=== PATIENT | female | born 1960 | race Caucasian/White ===

== ENCOUNTER 2016-10-15 21:00 | Emergency (ER) | payer BC ==
[2016-10-15] MEDS ORDERED: Sodium Chloride 0.9% 2.5 ML Syringe FLUSH PRN (21:25)
[2016-10-15] MEDS ORDERED: Sodium Chloride 0.9% 10 ML Syringe FLUSH PRN (21:25)
[2016-10-15] MEDS ORDERED: diphenhydrAMINE 50 MG/ML SDV IVPUSH ONE (21:26)
[2016-10-15] MEDS ORDERED: Meclizine 25 MG Tab PO ONE (21:26)
[2016-10-15] MEDS ORDERED: Ondansetron 4 MG/2 ML SDV IVPUSH ONE (21:26)
--- NOTE | 2016-10-15 21:31 | EDM.PDOC ---
ED HPI GENERAL MEDICAL PROBLEM - General Chief Complaint: General Stated Complaint: DIZZY, VOMITING Time Seen by Provider: 10/15/16 21:05 - History of Present Illness INITIAL COMMENTS - FREE TEXT/NARRATIVE: HISTORY AND PHYSICAL: History of present illness: The patient is a 56-year-old female with a history of diabetes hypertension hypercholesterolemia hypothyroidism who follows with a family physician in [facility] where she lives and who presents with acute onset of dizziness nausea and vomiting which has since improved. Patient states she completely normal day today it took all of her usual medications and was just doing normal activities when at 7:30 PM, approximately 2 hours ago, she had sudden onset of dizziness like the room was spinning and acute nausea and vomiting x2. She did not have a headache neck pain back pain chest pain or shortness of breath and did not feel like she's going to pass out. She states that when she sat down she felt better but when she moves her head it was worse. Patient drove here with her and she states that by the time she was in triage she was significantly improved and only had a little bit of lightheadedness and dizziness but did not like she's got a pass out. She doesn't have anymore nausea and she never had abdominal pain. Patient denies any speech changes or trouble swallowing and she did not feel confused during this episode. She had no focal extremity weakness tingling or numbness. She currently is relatively asymptomatic except if she moves her head quickly to the left on my evaluation. Review of systems: As per history of present illness and below otherwise all systems reviewed and negative. Past medical history: As per history of present illness and as reviewed below otherwise noncontributory. Surgical history: As per history of present illness and as reviewed below otherwise noncontributory. Social history: No reported history of drug or alcohol abuse. Family history: As per history of present illness and as reviewed below otherwise noncontributory. Physical exam: General: Well-developed well-nourished female who is nontoxic and speaks clearly and easily in the ED. She has no demonstrated nystagmus on my exam. When I have her move her head quickly back and forth she says that when she moves quickly to the left she feels more dizzy than when she looks to the right. HEENT: Atraumatic, normocephalic, pupils reactive, negative for conjunctival pallor or scleral icterus, mucous membranes moist, throat clear, neck supple, nontender, trachea midline. EOMs intact, there is no midline step-offs or defects the cervical spine and no paraspinal tenderness, TMs are dulled bilaterally without any mastoid tenderness or redness Lungs: Clear to auscultation, breath sounds equal bilaterally, chest nontender. Heart: S1S2, regular, negative for clicks, rubs, or JVD. Abdomen: Soft, nondistended, nontender. Negative for masses or hepatosplenomegaly. Negative for costovertebral tenderness. Pelvis: Stable nontender. Genitourinary: Deferred. Rectal: Deferred. Extremities: Atraumatic, negative for cords or calf pain. Neurovascular unremarkable. No pedal edema Neuro: Awake, alert, oriented. Cranial nerves II through XII unremarkable. Cerebellum unremarkable. Motor and sensory unremarkable throughout. Exam nonfocal. Patient ambulated into the ED without ataxia. She has intact tone motor throughout all extremities and has no visible deficits. Her finger-nose is intact as is her speech. There is no drift in any of the extremities Diagnostics: EKG CT scan of the head CBC CMP TSH troponin UA orthostatic vitals Therapeutics: Antivert Benadryl Zofran IV O2 monitor Patient states she feels much improved and would like to go home. I did discuss with her the option of staying for observation admission and she declines at this time. She says that she will fill the prescription for Antivert and utilize it as we discussed and follow up with her provider tomorrow. She is aware of reasons to return to the ED Impression: Acute episode of vertiginous symptoms improved Definitive disposition and diagnosis as appropriate pending reevaluation and review of above. head Pain Score (Numeric/FACES): 1 - Related Data Allergies Allergy/AdvReac Type Severity Reaction Status Date / Time No Known Allergies Allergy Verified 10/15/16 21:11 Home Meds: Home Meds Levothyroxine 125 mcg PO DAILY 04/05/15 [History] Lisinopril 5 mg PO DAILY 04/05/15 [History] metFORMIN [Glucophage] 1,000 mg PO WITHDINNER 04/05/15 [History] Aspirin 81 mg PO BRK 10/15/16 [History] Clopidogrel Bisulfate [Clopidogrel] 1 tab PO DAILY 10/15/16 [History] Metoprolol Succinate [Toprol XL] 1 tab PO DAILY 10/15/16 [History] Nitroglycerin [Nitrostat] 1 tab PO ASDIRECTED 10/15/16 [History] atorvaSTATin Calcium [Atorvastatin Calcium] 1 tab PO ONETIME 10/15/16 [History] Past Medical History Other Oncologic History: 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 ED EXAM, GENERAL - Physical Exam Exam: See Below (See dictation) Course - Vital Signs Last Recorded V/S: Last Vital Signs Temp 36.5 C 10/15/16 21:15 Pulse 70 10/15/16 21:15 Resp 16 10/15/16 21:15 BP 153/69 H 10/15/16 21:15 Pulse Ox 97 10/15/16 21:24 Orthostatic Blood Pressure [ 173/76 Standing] Orthostatic Blood Pressure [ 171/74 Sitting] Orthostatic Blood Pressure [ 175/74 Supine] - Orders/Labs/Meds Orders: Active Orders 24 hr Category Date Time Status Cardiac Monitoring [RC] . DIRECTED Care 10/15/16 21:24 Active EKG Documentation Completion [RC] STAT Care 10/15/16 21:24 Active Orthostatic Vital Signs [RC] ASDIRECTED Care 10/15/16 21:25 Active Oxygen Therapy, ED [RC] ASDIRECTED Care 10/15/16 21:24 Active Pulse Oximetry [RC] ASDIRECTED Care 10/15/16 21:24 Active Head wo Cont [CT] Stat Exams 10/15/16 21:25 Taken Sodium Chloride 0.9% [Saline Flush] Med 10/15/16 21:25 Active 10 ml FLUSH ASDIRECTED PRN Sodium Chloride 0.9% [Saline Flush] Med 10/15/16 21:25 Active 2.5 ml FLUSH ASDIRECTED PRN Saline Lock Insert [OM.PC] Stat Oth 10/15/16 21:24 Ordered Medication Orders Sodium Chloride (Saline Flush) 10 ml FLUSH ASDIRECTED PRN PRN Reason: Keep Vein Open Sodium Chloride (Saline Flush) 2.5 ml FLUSH ASDIRECTED PRN PRN Reason: Keep Vein Open Labs: Laboratory Tests 10/15/16 10/15/16 10/15/16 Range/Units 21:45 21:45 21:45 WBC 13.73 H (4.0-11.0) K/uL RBC 4.06 L (4.30-5.90) M/uL Hgb 11.8 L (12.0-16.0) g/dL Hct 36.0 (36.0-46.0) % MCV 88.7 (80.0-98.0) fL MCH 29.1 (27.0-32.0) pg MCHC 32.8 (31.0-37.0) g/dL RDW Std Deviation 42.7 (28.0-62.0) fl RDW Coeff of Boy 13 (11.0-15.0) % Plt Count 231 (150-400) K/uL MPV 9.60 (7.40-12.00) fL Neut % (Auto) 77.4 (48.0-80.0) % Lymph % (Auto) 16.1 (16.0-40.0) % Perkins % (Auto) 5.5 (0.0-15.0) % Eos % (Auto) 0.7 (0.0-7.0) % Baso % (Auto) 0.3 (0.0-1.5) % Neut # (Auto) 10.6 H (1.4-5.7) K/uL Lymph # (Auto) 2.2 (0.6-2.4) K/uL Perkins # (Auto) 0.8 (0.0-0.8) K/uL Eos # (Auto) 0.1 (0.0-0.7) K/uL Baso # (Auto) 0.0 (0.0-0.1) K/uL Nucleated RBC % 0.0 /100WBC Nucleated RBCs # 0 K/uL Sodium 140 (136-146) mmol/L Potassium 4.4 (3.5-5.1) mmol/L Chloride 108 (98-110) mmol/L Carbon Dioxide 21 (21-31) mmol/L BUN 21 (6.0-23.0) mg/dL Creatinine 0.9 (0.6-1.5) mg/dL Est Cr Clr Drug Dosing 60.99 mL/min Estimated GFR (MDRD) > 60.0 ml/min Glucose 125 H (60-110) mg/dL Calcium 9.1 (8.8-10.8) mg/dL Total Bilirubin 0.2 (0.1-1.5) mg/dL AST 16 (5-40) IU/L ALT 15 (8-54) IU/L Alkaline Phosphatase 47 (40-150) Troponin I < 0.10 (0.0-0.29) NG/ML Total Protein 7.1 (6.0-8.0) g/dL Albumin 4.3 (3.5-5.0) g/dL Globulin 2.8 (2.0-3.5) g/dL Albumin/Globulin Ratio 1.5 (1.3-2.8) TSH 3rd Generation 0.85 (0.47-5.0) uIU/mL Urine Color Urine Appearance Urine pH (5.0-8.0) Ur Specific [place] (1.001-1.035) Urine Protein (NEGATIVE) mg/dL Urine Glucose (UA) (NEGATIVE) mg/dL Urine Ketones (NEGATIVE) mg/dL Urine Occult Blood (NEGATIVE) Urine Nitrite (NEGATIVE) Urine Bilirubin (NEGATIVE) Urine Urobilinogen (<2.0) EU/dL Ur Leukocyte Esterase (NEGATIVE) Urine RBC (0-2/HPF) Urine WBC (0-5/HPF) Ur Epithelial Cells (NONE-FEW) Urine Bacteria (NEGATIVE) Urine Mucus (NONE-MOD) 10/15/16 Range/Units 22:30 WBC (4.0-11.0) K/uL RBC (4.30-5.90) M/uL Hgb (12.0-16.0) g/dL Hct (36.0-46.0) % MCV (80.0-98.0) fL MCH (27.0-32.0) pg MCHC (31.0-37.0) g/dL RDW Std Deviation (28.0-62.0) fl RDW Coeff of Boy (11.0-15.0) % Plt Count (150-400) K/uL MPV (7.40-12.00) fL Neut % (Auto) (48.0-80.0) % Lymph % (Auto) (16.0-40.0) % Perkins % (Auto) (0.0-15.0) % Eos % (Auto) (0.0-7.0) % Baso % (Auto) (0.0-1.5) % Neut # (Auto) (1.4-5.7) K/uL Lymph # (Auto) (0.6-2.4) K/uL Perkins # (Auto) (0.0-0.8) K/uL Eos # (Auto) (0.0-0.7) K/uL Baso # (Auto) (0.0-0.1) K/uL Nucleated RBC % /100WBC Nucleated RBCs # K/uL Sodium (136-146) mmol/L Potassium (3.5-5.1) mmol/L Chloride (98-110) mmol/L Carbon Dioxide (21-31) mmol/L BUN (6.0-23.0) mg/dL Creatinine (0.6-1.5) mg/dL Est Cr Clr Drug Dosing mL/min Estimated GFR (MDRD) ml/min Glucose (60-110) mg/dL Calcium (8.8-10.8) mg/dL Total Bilirubin (0.1-1.5) mg/dL AST (5-40) IU/L ALT (8-54) IU/L Alkaline Phosphatase (40-150) Troponin I (0.0-0.29) NG/ML Total Protein (6.0-8.0) g/dL Albumin (3.5-5.0) g/dL Globulin (2.0-3.5) g/dL Albumin/Globulin Ratio (1.3-2.8) TSH 3rd Generation (0.47-5.0) uIU/mL Urine Color YELLOW Urine Appearance CLEAR Urine pH 5.5 (5.0-8.0) Ur Specific [place] 1.025 (1.001-1.035) Urine Protein NEGATIVE (NEGATIVE) mg/dL Urine Glucose (UA) NEGATIVE (NEGATIVE) mg/dL Urine Ketones TRACE H (NEGATIVE) mg/dL Urine Occult Blood TRACE-INTACT (NEGATIVE) Urine Nitrite NEGATIVE (NEGATIVE) Urine Bilirubin NEGATIVE (NEGATIVE) Urine Urobilinogen 0.2 (<2.0) EU/dL Ur Leukocyte Esterase NEGATIVE (NEGATIVE) Urine RBC 0-2 (0-2/HPF) Urine WBC 0-2 (0-5/HPF) Ur Epithelial Cells RARE (NONE-FEW) Urine Bacteria RARE (NEGATIVE) Urine Mucus LIGHT (NONE-MOD) Meds: Medications Generic Name Dose Route Start Last Admin Trade Name Laz PRN Reason Stop Dose Admin Sodium Chloride 10 ml 10/15/16 21:25 Saline Flush FLUSH ASDIRECTED PRN Keep Vein Open Sodium Chloride 2.5 ml 10/15/16 21:25 Saline Flush FLUSH ASDIRECTED PRN Keep Vein Open Discontinued Medications Generic Name Dose Route Start Last Admin Trade Name Laz PRN Reason Stop Dose Admin Diphenhydramine HCl 25 mg 10/15/16 21:26 10/15/16 21:47 Benadryl IVPUSH 10/15/16 21:27 25 mg ONETIME ONE Administration Meclizine HCl 25 mg 10/15/16 21:26 10/15/16 21:47 Antivert PO 10/15/16 21:27 25 mg ONETIME ONE Administration Ondansetron HCl 4 mg 10/15/16 21:26 10/15/16 21:47 Zofran IVPUSH 10/15/16 21:27 4 mg ONETIME ONE Administration Departure - Departure Time of Disposition: 23:07 Disposition: Home, Self-Care 01 Condition: good Clinical Impression: Vertigo, Dizziness Forms: ED Department Discharge Additional Instructions: The following information is given to patients seen in the emergency department who are being discharged to home. This information is to outline your options for follow-up care. We provide all patients seen in our emergency department with a follow-up referral. The need for follow-up, as well as the timing and circumstances, are variable depending upon the specifics of your emergency department visit. If you don't have a primary care physician on staff, we will provide you with a referral. We always advise you to contact your personal physician following an emergency department visit to inform them of the circumstance of the visit and for follow-up with them and/or the need for any referrals to a consulting specialist. The emergency department will also refer you to a specialist when appropriate. This referral assures that you have the opportunity for followup care with a specialist. All of these measure are taken in an effort to provide you with optimal care, which includes your followup. Under all circumstances we always encourage you to contact your private physician who remains a resource for coordinating your care. When calling for followup care, please make the office aware that this follow-up is from your recent emergency room visit. If for any reason you are refused follow-up, please contact the [facility] emergency department at and ask to speak to the emergency department charge nurse. [facility] Primary care- Internal Medicine and Family [address] [address] Please use [id number] Benadryl for symptoms as needed and as we discussed and start Antivert prescription you have been given tomorrow. Please call your provider and followup with him tomorrow or the next day or one of our clinic physicians and return to ER as needed and as discussed - My Orders Last 24 Hours: My Active Orders 10/15/16 21:24 Cardiac Monitoring [RC] . DIRECTED EKG Documentation Completion [RC] STAT Oxygen Therapy, ED [RC] ASDIRECTED Pulse Oximetry [RC] ASDIRECTED Saline Lock Insert [OM.PC] Stat 10/15/16 21:25 Orthostatic Vital Signs [RC] ASDIRECTED Head wo Cont [CT] Stat Sodium Chloride 0.9% [Saline Flush] 10 ml FLUSH ASDIRECTED PRN Sodium Chloride 0.9% [Saline Flush] 2.5 ml FLUSH ASDIRECTED PRN - Assessment/Plan Last 24 Hours: My Active Orders 10/15/16 21:24 Cardiac Monitoring [RC] . DIRECTED EKG Documentation Completion [RC] STAT Oxygen Therapy, ED [RC] ASDIRECTED Pulse Oximetry [RC] ASDIRECTED Saline Lock Insert [OM.PC] Stat 10/15/16 21:25 Orthostatic Vital Signs [RC] ASDIRECTED Head wo Cont [CT] Stat Sodium Chloride 0.9% [Saline Flush] 10 ml FLUSH ASDIRECTED PRN Sodium Chloride 0.9% [Saline Flush] 2.5 ml FLUSH ASDIRECTED PRN
[2016-10-15 22:18] LABS: CHLORIDE,CL 108 mmol/L (98-110); SODIUM,NA 140 mmol/L (136-146)
[2016-10-15 23:43] VITALS: BP 134/63
--- NOTE | 2016-10-16 11:21 | CT ---
EXAM DATE: 10/15/16 PATIENT'S AGE: 56 Patient: JORDY SUMMERS Facility: [place], [place] Site . Site : [id number] Study: CT Head [id number] 10:15:37 PM Ordering Physician: Maryellen Cohen Final Report: INDICATION: Sudden onset dizziness TECHNIQUE: CT head without contrast. COMPARISON: None FINDINGS: CSF spaces: Within normal limits for age. Brain parenchyma: The sena-white differentiation is normal. No sign of mass, hemorrhage, or midline shift. Skull base and calvarium: The visualized paranasal sinuses and mastoid air cells demonstrate no acute or significant findings. The visualized orbits are grossly unremarkable. No skull fractures. IMPRESSION: Unremarkable noncontrast head CT. No acute intracranial abnormalities. Dictated by Mateo Pruitt MD @ 10/15/2016 10:21:22 PM Dictated by: Mateo Pruitt MD @ 10/15/2016 22:21:28 (Electronic Signature) Report Signed by Proxy and Original Signed Document filed in the Medical Record. [facility]
== END 2016-10-15 23:40 | disposition home or self-care (01) ==
LOC: MW.ED 21:00
DX: R42 Dizziness and giddiness (principal); F17.210 Nicotine dependence, cigarettes, uncomplicated; Z79.899 Other long term (current) drug therapy
CPT/HCPCS: 36415; 70450; 80053; 81001; 84443; 84484; 85025; 93005; 96374; 96375; 99284; A9270; J1200; J2405

== ENCOUNTER 2021-01-27 08:00 | Day surgery (SDC) | payer BC ==
[~2021-01-27 08:00] MED LIST: Lactated Ringers 1,000 ML IV SCH
[2021-01-27] MEDS ORDERED: Dexamethasone 4 MG/ML 5 ML MDV ONE (09:10)
[2021-01-27] MEDS ORDERED: Propofol 200 MG/20 ML SDV ONE (09:11)
--- NOTE | 2021-01-27 09:15 | PCM.PREANE ---
Preanesthetic Assessment - Anesthesia/Transfusion/Family Hx Anesthesia History: Prior Anesthesia Without Reaction Transfusion History: Prior Transfusion Without Reaction - Review of Systems General: No Symptoms Pulmonary: No Symptoms Cardiovascular: No Symptoms Gastrointestinal: No Symptoms Neurological: No Symptoms Other: Reports: Diabetes - Physical Assessment NPO Status Date: 01/27/21 NPO Status Time: 00:00 Vital Signs: Last Vital Signs Temp 98.2 F 01/27/21 08:16 Pulse 81 01/27/21 08:16 Resp 15 01/27/21 08:16 BP 149/88 H 01/27/21 08:16 Pulse Ox 98 01/27/21 08:16 Height: 5 ft 4 in Weight: 190 lb ASA Class: 3 Mental Status: Alert & Oriented x3 Airway Class: Mallampati = 2 Dentition: Reports: Normal Dentition ROM/Head Extension: Full Lungs: Clear to Auscultation, Normal Respiratory Effort Cardiovascular: Regular Rate, Regular Rhythm - Allergies Allergies/Adverse Reactions: Allergies Allergy/AdvReac Type Severity Reaction Status Date / Time No Known Allergies Allergy Verified 01/23/21 12:11 PreAnesthesia Questionnaire HEENT History: Reports: Other (See Below) Other HEENT History: wears glasses Cardiovascular History: Reports: High Cholesterol, Hypertension, [place], Stents, Other (See Below) Other Cardiovascular History: Heart attack in 2015 Respiratory History: Reports: None Gastrointestinal History: Reports: None Genitourinary History: Reports: None 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: Musculoskeletal History: Reports: None Neurological History: Reports: None Psychiatric History: Reports: None Endocrine/Metabolic History: Reports: Diabetes, Type II, Hypothyroidism, Obesi ty/BMI 30+ Hematologic History: Reports: Anticoagulation Therapy, Blood Transfusion(s) Immunologic History: Reports: None Oncologic (Cancer) History: Reports: None Dermatologic History: Reports: None - Infectious Disease History Infectious Disease History: Reports: Chicken Pox - Past Surgical History Head Surgeries/Procedures: Reports: None HEENT Surgical History: Reports: Oral Surgery Cardiovascular Surgical History: Reports: Coronary Artery Stent Respiratory Surgical History: Reports: None GI Surgical History: Reports: None Female Surgical History: Reports: Tubal Ligation Endocrine Surgical History: Reports: None Neurological Surgical History: Reports: None Musculoskeletal Surgical History: Reports: None Oncologic Surgical History: Reports: None Dermatological Surgical History: Reports: None - SUBSTANCE USE Tobacco Use Status *Q: Former Tobacco User Tobacco Use Within Last Twelve Months: No - HOME MEDS Home Medications: Home Meds Levothyroxine 100 mcg PO DAILY 04/05/15 [History] Lisinopril 20 mg PO BEDTIME 04/05/15 [History] metFORMIN [Glucophage] 1,000 mg PO BIDMEALS 04/05/15 [History] Aspirin 81 mg PO BRK 10/15/16 [History] Clopidogrel Bisulfate [Clopidogrel] 75 mg PO DAILY 10/15/16 [History] Metoprolol Succinate [Toprol XL] 25 mg PO BEDTIME 10/15/16 [History] Nitroglycerin [Nitrostat] 1 tab PO ASDIRECTED PRN 10/15/16 [History] atorvaSTATin Calcium [Atorvastatin Calcium] 40 mg PO DAILY 10/15/16 [History] Chlorthalidone 0.5 tab PO DAILY 01/23/21 [History] Empagliflozin [Jardiance] 10 mg PO DAILY 01/23/21 [History] - CURRENT (IN HOUSE) MEDS Current Meds: Current Medications Lactated Ringer's (Ringers, Lactated) 1,000 mls @ 125 mls/hr IV ASDIRECTED JEANETTE Last Admin: 01/27/21 08:34 Dose: 125 mls/hr Documented by: Discontinued Medications Dexamethasone (Dexamethasone 4 Mg/Ml 5 Ml Mdv) Confirm Administered Dose 20 mg .ROUTE .STK-MED ONE Stop: 01/27/21 09:11 Lidocaine HCl (Lidocaine 1% 5 Ml Sdv) Confirm Administered Dose 5 ml .ROUTE .STK-MED ONE Stop: 01/27/21 09:11
--- NOTE | 2021-01-27 10:13 | PCM.OPNOTE ---
- General Post-Op/Procedure Note Date of Surgery/Procedure: 01/27/21 Operative Procedure(s): Colonoscopy Pre Op Diagnosis: Desire for colorectal cancer screening Post-Op Diagnosis: No evidence of neoplasia. Anesthesia Technique: MAC (ASA III) Primary Surgeon: Reji Haney Condition: Good Free Text/Narrative:: DICTATION [id number] CPT CODE 24608
[2021-01-27] MEDS ORDERED: Lactated Ringers 1,000 ML IV SCH (10:15)
[2021-01-27 10:33] VITALS: BP 124/67; PULSE 64
--- NOTE | 2021-01-27 10:34 | PCM48HPAN ---
Post Anesthesia Note - EVALUATION WITHIN 48HRS OF ANESTHETIC Vital Signs in Normal Range: Yes Patient Participated in Evaluation: Yes Respiratory Function Stable: Yes Airway Patent: Yes Cardiovascular Function Stable: Yes Hydration Status Stable: Yes Pain Control Satisfactory: Yes Nausea and Vomiting Control Satisfactory: Yes Mental Status Recovered: Yes Vital Signs: Last Vital Signs Temp 96.6 F L 01/27/21 10:25 Pulse 64 01/27/21 10:25 Resp 14 01/27/21 10:25 BP 124/67 01/27/21 10:25 Pulse Ox 95 01/27/21 10:25
--- NOTE | 2021-01-27 10:34 | PCM.POSTAN ---
POST ANESTHESIA ASSESSMENT - MENTAL STATUS Mental Status: Alert, Oriented - VITAL SIGNS Vital Signs: Last Vital Signs Temp 96.6 F L 01/27/21 10:25 Pulse 64 01/27/21 10:25 Resp 14 01/27/21 10:25 BP 124/67 01/27/21 10:25 Pulse Ox 95 01/27/21 10:25 - RESPIRATORY Respiratory Status: Respiratory Rate WNL, Airway Patent, O2 Saturation Stable - CARDIOVASCULAR CV Status: Pulse Rate WNL, Blood Pressure Stable - GASTROINTESTINAL GI Status: No Symptoms - POST OP HYDRATION Hydration Status: Adequate & Stable
--- NOTE | 2021-01-27 13:59 | OR ---
SURGEON: Reji Haney M.D. DATE OF PROCEDURE: 01/27/2021 OPERATION PERFORMED: Colonoscopy. PRIMARY SURGEON: Reji Haney M.D. ANESTHESIA: MAC. ASA CLASSIFICATION: III. PREOPERATIVE DIAGNOSIS: Desire for colorectal cancer screening. POSTOPERATIVE DIAGNOSIS: No evidence of neoplasia. DESCRIPTION OF PROCEDURE: The patient was taken to the endoscopy room and positioned on the endoscopy table in the left lateral decubitus position. Time-out was called for appropriate identification of the patient and procedure. Monitored anesthesia care was provided. The colonoscope was inserted into the rectum and advanced with minimal difficulty to the cecum. The cecum was identified by internal landmarks and external pressure. The colonoscope was retroflexed to visualize the ascending colon from below and then straightened and slowly withdrawn. The cecum, ascending colon, hepatic flexure, transverse colon, splenic flexure, descending colon, sigmoid colon, and rectum were very well visualized. No tumors, polyps, diverticula, or angiodysplastic changes were encountered anywhere in the lower gastrointestinal tract. Once the colonoscope was withdrawn to the rectum, it was retroflexed to visualize the anal orifice from above. No tumors or polyps were seen and there were no acute hemorrhoidal changes. The colonoscope was then straightened, the rectum aspirated, and the colonoscope removed. The patient tolerated the procedure well and was taken to recovery room in stable condition. ROWAN / PHILIP /[id number]
== END 2021-01-27 10:50 | disposition home or self-care (01) ==
LOC: MW.SDS 08:00
PROVIDERS: ATTEND Surgery
DX: Z12.11 Encounter for screening for malignant neoplasm of colon (principal); E11.9 Type 2 diabetes mellitus without complications; E78.00 Pure hypercholesterolemia, unspecified; I25.2 Old myocardial infarction; Z87.891 Personal history of nicotine dependence; I10 Essential (primary) hypertension; E03.9 Hypothyroidism, unspecified; Z79.82 Long term (current) use of aspirin; Z79.84 Long term (current) use of oral hypoglycemic drugs; Z79.899 Other long term (current) drug therapy; Z95.5 Presence of coronary angioplasty implant and graft
CPT/HCPCS: 45378; J1100; J2704; J7120; 00812

== ENCOUNTER 2024-08-22 12:50 | Emergency (ER) | payer BC ==
[2024-08-22 13:11] VITALS: BP 152/78; PULSE 95
== END 2024-08-22 17:44 | disposition home or self-care (01) ==
LOC: MW.ED 12:50
DX: S52.125A Nondisplaced fracture of head of left radius, initial encounter for closed fracture (principal); K08.89 Other specified disorders of teeth and supporting structures; I10 Essential (primary) hypertension; I25.2 Old myocardial infarction; E66.9 Obesity, unspecified; E11.9 Type 2 diabetes mellitus without complications; E03.9 Hypothyroidism, unspecified; Z75.8 Other problems related to medical facilities and other health care; Z79.82 Long term (current) use of aspirin; Z79.84 Long term (current) use of oral hypoglycemic drugs; Z79.890 Hormone replacement therapy; Z79.899 Other long term (current) drug therapy; W22.8XXA Striking against or struck by other objects, initial encounter
CPT/HCPCS: 29105; 73080-26-LT; 73080-LT; 99283; 99283-25